=== PATIENT | female | born 1950 | race African-American/Black ===

== ENCOUNTER 2016-12-23 09:12 | Outpatient (CLI) | payer MEDICARE ==
--- NOTE | 2016-12-23 10:34 | MMO ---
LEFT DIAGNOSTIC MAMMOGRAM: HISTORY: Abnormal calcifications on screening mammogram of 12/10/16. FINDINGS: Correlation is made with the mammograms of 12/10/16. The cluster of microcalcifications in the central aspect of the right breast have a suspicious appea beatriz and should be evaluated with biopsy (stereotactic). IMPRESSION: BI-RADS category 4 - suspicious abnormality. Biopsy is recommended. Report was called over the telephone to Dr. Maura Connors's nurse, Bari Gómez, at 9:50a.m. (Dr. Enrico aguayo is out of town). CODE T POS: [facility]
== END 2016-12-23 09:13 | disposition home or self-care (01) ==
LOC: MAMMO 09:12
PROVIDERS: ATTEND Internal Medicine Medical Oncology
DX: R92.2 Inconclusive mammogram (principal)
CPT/HCPCS: G0206-LT

== ENCOUNTER → 2017-01-07 | Day surgery (SDC) | payer MEDICARE ==
--- NOTE | 2017-01-07 11:34 | MMO ---
STEREOTACTIC LEFT BREAST BIOPSY: Date: 01/07/17 CLINICAL HISTORY: Left breast calcifications. PROCEDURE: Informed consent was obtained. The patient was escorted to the procedural suite. The patient's left breast was placed into compression on the stereotactic table. Topical anesthesia was achieved with b uffered 1% lidocaine subsequent to standard sterile prepping and draping. Using mammographic imaging , the calcifications of interest were localized. Stereotactic coordinates were performed. A small sk in incision was made, through which a 10 gauge stereotactic biopsy needle was advanced to the leadin g edge of the calcifications and then deployed at the appropriate site, confirmed with imaging. Subs equently, six core specimens were acquired. The specimens were radiographed, which revealed calcific ations of interest. The biopsy needle was then removed and was exchanged for a marking clip placemen t device. Biopsy marking clip was then deployed. This was confirmed with stereotactic imaging. All d evices were otherwise removed from the patient. The patient tolerated the procedure well. Hemostasis was achieved. IMPRESSION: Technically successful stereotactic left breast biopsy. Pathology results are pending. POS: [facility]
--- NOTE | 2017-01-07 11:34 | MMO ---
SPECIMEN RADIOGRAPH: Date: 01/07/17 CLINICAL HISTORY: Stereotactic biopsy of the left breast. FINDINGS: Specimens from stereotactic biopsy are radiographed and reveal calcifications of interest. IMPRESSION: Calcifications are present within the biopsied, radiographed specimens. POS: [facility]
--- NOTE | 2017-01-07 11:36 | MMO ---
DIAGNOSTIC LEFT MAMMOGRAM: Date: 01/07/17 CLINICAL INDICATION: Postprocedural diagnostic left mammographic views subsequent to stereotactic biopsy and marking clip placement. FINDINGS: There are scattered fibroglandular elements. The patient's clustering of indeterminate calcification s has a reduced number of calcifications status post biopsy with a deployed marking clip within this region. IMPRESSION: Reduced number of calcifications of interest status post stereotactic biopsy with marking clip deplo yed at the site of calcifications. POS: [facility]
== END ==
LOC: MAMMO 06:52
PROVIDERS: ATTEND Internal Medicine Medical Oncology
PROC: 0HBU3ZX Excision of Left Breast, Percutaneous Approach, Diagnostic (ICD-10-PCS; principal; 2017-01-07)
DX: N60.22 Fibroadenosis of left breast (principal)
CPT/HCPCS: 19081; 76098; 88305; G0206

== ENCOUNTER 2018-01-27 13:19 | Outpatient (CLI) | payer MEDICARE | END 2018-01-27 13:20 | disposition home or self-care (01) | LOC: BICMAMMO 13:19 | PROVIDERS: ATTEND Internal Medicine Medical Oncology | DX: Z12.31 Encounter for screening mammogram for malignant neoplasm of breast (principal); Z85.3 Personal history of malignant neoplasm of breast; Z80.3 Family history of malignant neoplasm of breast; Z87.42 Personal history of other diseases of the female genital tract | CPT/HCPCS: 77066; G0279; 77063; 77067 ==

== ENCOUNTER 2019-02-01 13:34 | Outpatient (CLI) | payer MEDICARE ==
--- NOTE | 2019-02-01 15:51 | MMO ---
Bilateral MAMMO Bilat Screen [facility]. CLINICAL HISTORY: Patient is 68 years old and is seen for screening. The patient has the following family history of breast cancer: mother and sister, at age 26. The patient has a history of malignant (generic) in the right breast 2006. The patient has a history of left Stereotatic Biopsy in January, - benign, left needle biopsy in 2006 - malignant, right Lumpectomy in 2006 - malignant and right Excisional Biopsy in - benign. VIEWS: The views performed were: bilateral craniocaudal with tomosynthesis and bilateral mediolateral oblique with tomosynthesis. FILMS COMPARED: The present examination has been compared to prior imaging studies performed at [facility] on 09/25/2015, 12/10/2016, 12/23/2016 and 01/27/2018. This study has been interpreted with the assistance of computer-aided detection. MAMMOGRAM FINDINGS: There are scattered fibroglandular densities. Finding 1: There are stable benign appearing calcifications seen in both breasts. There are no suspicious masses, calcifications or areas of architectural distortion. Finding 2: There are biopsy clips seen in the left breast. Finding 3: There are stable post operative changes seen in the right breast. There are no suspicious masses, suspicious calcifications, or new areas of architectural distortion. IMPRESSION: THERE IS NO MAMMOGRAPHIC EVIDENCE OF MALIGNANCY. A ROUTINE FOLLOW-UP MAMMOGRAM IN 1 YEAR IS RECOMMENDED. THE RESULTS OF THIS EXAM WERE SENT TO THE PATIENT. ACR BI-RADS Category 2 - Benign finding MAMMOGRAPHY NOTE: 1. A negative mammogram report should not delay a biopsy if a dominant of clinically suspicious mass is present. 2. Approximately 10% to 15% of breast cancers are not detected by mammography. 3. Adenosis and dense breasts may obscure an underlying neoplasm. Reported by: CAROLYN COTA MD Electonically Signed: [id number]
== END 2019-02-01 13:35 | disposition home or self-care (01) ==
LOC: BICMAMMO 13:34
PROVIDERS: ATTEND Internal Medicine
DX: Z12.31 Encounter for screening mammogram for malignant neoplasm of breast (principal); Z80.3 Family history of malignant neoplasm of breast; Z85.3 Personal history of malignant neoplasm of breast; Z91.89 Other specified personal risk factors, not elsewhere classified; Z98.890 Other specified postprocedural states
CPT/HCPCS: 77063; 77067

== ENCOUNTER 2020-01-31 07:45 | Outpatient (CLI) | payer MEDICARE ==
--- NOTE | 2020-01-31 08:55 | CT ---
EXAM: CT Abdomen Pelvis W Con PROVIDED CLINICAL HISTORY: Colon cancer found at recent colonoscopy COMPARISON: None FINDINGS: The visualized lung bases are free of significant opacity. There is a 2 cm predominantly fat density mass at the superior pole of the left kidney. There are sub centimeter hypodensities involving both kidneys as well as the right hepatic lobe, too small to definitively characterize but statistically reflecting cysts. The spleen, pancreas and adrenal glands appear unremarkable. The gallbladder is moderately distended by gallstones. There is conspicuous mural thickening involving the sigmoid colon-descending colon junction, presumab ly reflecting the provided clinical history of colon cancer. There is no bowel dilatation, inflammatory fat stranding, free fluid or lymph node enlargement apparent. The regional major vascular structures appear unremarkable with the exception of vascular calcificati on. The osseous structures demonstrate no concerning lytic or blastic lesions. Bilateral hip degenerative changes with associated subcortical cyst formation within both acetabula. Degenerative changes are seen involving the spine. IMPRESSION: 1. No CT evidence for metastatic disease. 2. 2 cm left renal angiomyolipoma. 3. Prominent cholelithiasis.
== END 2020-01-31 07:46 | disposition home or self-care (01) ==
LOC: SCSCT 07:45
PROVIDERS: ATTEND Specialist
DX: C18.9 Malignant neoplasm of colon, unspecified (principal); D17.71 Benign lipomatous neoplasm of kidney; K80.20 Calculus of gallbladder without cholecystitis without obstruction
CPT/HCPCS: 74177

== ENCOUNTER 2020-02-09 06:51 | Outpatient (CLI) | payer MEDICARE, OTHER ==
--- NOTE | 2020-02-09 14:48 | RAD ---
2 VIEW CHEST: Date: 02/09/2020 HISTORY: Preop. FINDINGS: Lung dickey are clear. No infiltrate or vascular congestion. Heart size upper normal. Osseous structu res unremarkable. IMPRESSION: No acute process. POS: [facility]
[2020-02-10 15:19] LABS: SARS-CoV-2 MS2 Positive; SARS-CoV-2 N Gene Negative; SARS-CoV-2 S Gene Negative; SARS-CoV-2 by NAA Not Detected (NotDetected); SARS-CoV-2 orf1ab Negative
--- NOTE | 2020-02-12 20:54 | EKG ---
Test Reason : Blood Pressure : / mmHG Vent. Rate : 072 BPM Atrial Rate : 072 BPM P-R Int : 154 ms QRS Dur : 090 ms QT Int : 390 ms P-R-T Axes : 066 -06 057 degrees QTc Int : 427 ms Normal sinus rhythm Possible Left atrial enlargement Nonspecific T wave abnormality Abnormal ECG No previous ECGs available Confirmed by William GILLILAND ([id number]) on 02/12/2020 8:53:37 PM Referred By: JULIANO Confirmed By:William GILLILAND
== END 2020-02-09 06:52 | disposition home or self-care (01) ==
LOC: LABBT 06:51
PROVIDERS: ATTEND Specialist
DX: Z01.818 Encounter for other preprocedural examination (principal); Z20.828 Contact with and (suspected) exposure to other viral communicable diseases
CPT/HCPCS: 71046; 93005; U0003; 87635; 93010

== ENCOUNTER 2020-02-09 14:00 | Inpatient (IN) | payer MEDICARE ==
[2020-02-13 12:44] VITALS: BMI 28.2
[2020-02-14] MEDS ORDERED: Lidocaine 1% w/Epinephrine 1:100K 20 ML VIAL ONE ×2 (08:51→11:10)
[2020-02-14] MEDS ORDERED: Bupivacaine 0.25% HCL 30 ML VIAL ONE (08:51)
[2020-02-14] MEDS ORDERED: Fentanyl 250 MCG/5 ML VIAL ONE (08:56)
[2020-02-14] MEDS ORDERED: cefOXitin Sodium/Dextrose 2 GM/50 ML BAG ONE ×2 (08:58→12:13)
[2020-02-14] MEDS ORDERED: Ketorolac Tromethamine 30 MG/ML VIAL ONE (08:58)
[2020-02-14] MEDS ORDERED: Acetaminophen 500 MG TAB ONE (08:58)
[2020-02-14] MEDS ORDERED: Fentanyl 100 MCG/2 ML VIAL ONE ×2 (09:29→16:16)
[2020-02-14] MEDS ORDERED: Midazolam HCl 2 mg/2 ml Vial ONE (09:29)
[2020-02-14] MEDS ORDERED: ePHEDrine 50 MG/ML VIAL ONE (10:22)
[2020-02-14] MEDS ORDERED: Bupivacaine HCl 0.5%/Epinephrine 1:200,000/PF 30 ml Vial ONE (10:22)
[2020-02-14] MEDS ORDERED: Lidocaine 1% PF 5 ML VIAL ONE (10:22)
[2020-02-14] MEDS ORDERED: Rocuronium Bromide 10 MG/ML (10ML VIAL) ONE (10:22)
[2020-02-14] MEDS ORDERED: Dexamethasone 20 MG/5 ML VIAL ONE (10:22)
[2020-02-14] MEDS ORDERED: Glycopyrrolate 0.2 MG/ML 5 ML SYRINGE ONE (10:22)
[2020-02-14] MEDS ORDERED: Ondansetron PF 4 MG/2 ML Vial ONE (10:22)
[2020-02-14] MEDS ORDERED: PHENYLEPHRINE-NS 100 MCG/ML 10 ML SYRINGE ONE (10:22)
[2020-02-14] MEDS ORDERED: PROPOFOL 200 MG/20 ML VIAL ONE (10:22)
[2020-02-14] MEDS ORDERED: D5 1/2 NS w/20 mEq KCL 1,000 ML ONE (13:41)
[2020-02-14] MEDS ORDERED: Promethazine HCl 25 MG/ML VIAL SLOW IVP PRN (14:02)
[2020-02-14] MEDS ORDERED: Ondansetron HCl/PF 4 MG/2 ML Vial IVP PRN (14:02)
[2020-02-14] MEDS ORDERED: Promethazine HCl 25 MG/ML VIAL IM PRN ×2 (14:02→17:27)
[2020-02-14] MEDS ORDERED: Morphine 2 MG/ML VIAL SLOW IVP PRN (17:27)
[2020-02-14] MEDS ORDERED: Morphine 4 MG/ML VIAL SLOW IVP PRN (17:27)
[2020-02-14] MEDS ORDERED: Ondansetron PF 4 MG/2 ML Vial IVP PRN (17:27)
[2020-02-14] MEDS ORDERED: hydrALAZINE 20 MG/ML VIAL SLOW IVP PRN (17:27)
[2020-02-14] MEDS: Ketorolac Tromethamine 30 MG/ML VIAL IVP SCH ×2 (18:23→23:41)
[2020-02-14] MEDS: D5 1/2 NS w/20 mEq KCL 1,000 ML IV SCH (18:30)
[2020-02-14] MEDS: Atorvastatin Calcium 10 MG TAB PO SCH (20:59)
[2020-02-14] MEDS: Famotidine/PF 20 mg/2ml Vial SLOW IVP SCH (20:59)
[2020-02-14] MEDS: Enoxaparin Sodium 40 MG/0.4 ML SYRINGE SC SCH (20:59)
[2020-02-14] MEDS: Famotidine 20 MG TAB PO SCH (22:41)
[2020-02-15] MEDS: D5 1/2 NS w/20 mEq KCL 1,000 ML IV SCH ×3 (01:37→10:07)
[2020-02-15] MEDS: Ketorolac Tromethamine 30 MG/ML VIAL IVP SCH ×4 (05:25→23:35)
[2020-02-15 06:05] LABS: #Lymphocytes 0.7 thou/uL (1.20-3.40); #Monocytes 0.9 thou/uL (0.11-0.59); #Neutrophils 11.6 thou/uL (1.40-6.50); %Basophils 0.1 % (0.0-1.0); %Lymphocytes 5.3 % (21.0-51.0); %Monocytes 6.6 % (0.0-10.0); Hemoglobin 7.9 g/dL (12.0-16.0); Mean Corpuscular HGB CONC 30.8 g/dL (32.0-36.0); Mean Corpuscular Hemoglobin 23.5 pg (27.0-31.0); Mean Corpuscular Volume 76.5 fL (78.0-98.0); Mean Platelet Volume 8.4 fL (7.4-10.4); Platelet Count 289 thou/uL (130-400); RBC Distribution Width 15.9 % (11.5-14.5); Red Blood Cell (RBC) Count 3.36 mill/uL (4.20-5.40); White Blood Cell (WBC) Count 13.2 thou/uL (4.8-10.8)
[2020-02-15 06:25] LABS: Anion Gap 11 mmol/L (10-20); BUN (Urea Nitrogen) 5 mg/dL (9.8-20.1); Calc. Creatinine Clearance 94 mL/min (70-130); Calcium 8.7 mg/dL (7.8-10.44); Carbon Dioxide 24 mmol/L (23-31); Chloride 110 mmol/L (98-107); Estimated GFR-MDRD Greater than 90; Glucose 125 mg/dL (80-115); Potassium 3.6 mmol/L (3.5-5.1); Sodium 141 mmol/L (136-145)
--- NOTE | 2020-02-15 06:27 | PDOC.GSPN ---
Surgery Progress Note: Subj - Subjective Narrative: Ms. Gonzalez is a 69 y.o F POD 1 laparoscopic sigmoid colectomy and ch olecystectomy. Overnight she did well and had no complaints this morning. She was laying in bed at the time of the visit and rated her pain as a 0/10. She was able to tolerate her clear liquid diet yesterday and denied any nausea or vomiting. She has not yet had a bowel movement but has passed flatus this morning. She has voided once since the removal of her bailon this morning. She has been ambulating frequently. She denies any chest pain, dizziness, shortness of breath, and palpitations. She did not have an incentive spirometer made available to her. Surgery Progress Note: Obj - Vital signs Vital signs: Vital Signs - Most Recent Temp Pulse Resp BP Pulse Ox 99 F 77 18 160/80 H 97 02/15/20 03:18 02/15/20 03:18 02/15/20 03:18 02/15/20 03:18 02/15/20 03:18 - Physical Exam General: no distress Cardiovascular: regular rate and rhythm Respiratory: clear to auscultation, normal respiratory effort, breath sounds present Abdomen: soft, nondistended, positive bowel sounds, appropriately tender Wound: healing well Surgery Progress Note: Results - Labs Result Diagrams: 02/15/20 05:39 02/15/20 05:39 Lab results: Laboratory Results - last 12 hr 02/15/20 02/15/20 05:39 05:39 WBC 13.2 H RBC 3.36 L Hgb 7.9 L Hct 25.7 L MCV 76.5 L MCH 23.5 L MCHC 30.8 L RDW 15.9 H Plt Count 289 MPV 8.4 Neutrophils % 88.0 H Lymphocytes % 5.3 L Monocytes % 6.6 Eosinophils % 0.0 Basophils % 0.1 Neutrophils # 11.6 H Lymphocytes # 0.7 L Monocytes # 0.9 H Eosinophils # 0.0 Basophils # 0.0 Sodium 141 Potassium 3.6 Chloride 110 H Carbon Dioxide 24 Anion Gap 11 BUN 5 L Creatinine 0.70 Estimated GFR (MDRD) Greater than 90 Glucose 125 H Calcium 8.7 Her Hgb had been trending downward prior to surgery 2/2 colon cancer. It was 9.3 on 01/29 and is 7.9 this morning. We will continue to monitor her Hgb trend post-op. Surgery Progress Note: A/P - Plan Plan: Ms. Gonzalez is a 69 year old F POD 1 laparoscopic sigmoid colectomy and cholecystectomy. Overall she's doing well. 1. Advance her diet to full liquids 2. D/C IV fluids 3. CBC tomorrow AM to follow Hgb 4. DVT prophylaxis: encourage ambulation, continue lovenox, and SCDs 5. Give her an incentive spirometer and encourage use
[2020-02-15] MEDS: Amlodipine 10 MG TAB PO SCH (08:55)
[2020-02-15] MEDS: Famotidine 20 MG TAB PO SCH ×2 (08:55→21:27)
[2020-02-15] MEDS: Famotidine/PF 20 mg/2ml Vial SLOW IVP SCH (08:56)
[2020-02-15] MEDS ORDERED: HYDROcodone/Acetaminophen 7.5/325 mg Tablet PO PRN ×2 (10:52)
--- NOTE | 2020-02-15 17:15 | PDOC.FMACP ---
Advance Care Planning - Problem (1) S/P colectomy Status: Acute (2) Palliative care encounter Status: Acute Code(s): Z51.5 - ENCOUNTER FOR PALLIATIVE CARE (3) S/P cholecystectomy Status: Acute Code(s): Z90.49 - ACQUIRED ABSENCE OF OTHER SPECIFIED PARTS OF DIGESTIVE TRACT - Note Participants: patient, palliative care Summary: Palliative Care introduced Advanced Care Planning, opportunity to decline. The diagnosis, prognosis and goals of care were discussed. Appropriate forms and documentation to accomplish the goals of care were discussed. All questions were answered. Elected to complete a MPOA, original and copy given to the patient, copy also placed on chart for medical records. Directive to physician left for patient to review. Confirmed full resuscitation. Time Spent (mins): 15
[2020-02-15] MEDS: Atorvastatin Calcium 10 MG TAB PO SCH (21:28)
[2020-02-15] MEDS: Enoxaparin Sodium 40 MG/0.4 ML SYRINGE SC SCH (21:28)
[2020-02-16] MEDS: D5 1/2 NS w/20 mEq KCL 1,000 ML IV SCH (03:35)
[2020-02-16] MEDS: Ketorolac Tromethamine 30 MG/ML VIAL IVP SCH (05:51)
[2020-02-16 06:05] LABS: #Lymphocytes 1.4 thou/uL (1.20-3.40); #Monocytes 0.6 thou/uL (0.11-0.59); #Neutrophils 6.7 thou/uL (1.40-6.50); %Basophils 0.3 % (0.0-1.0); %Eosinophils 0.4 % (0.0-10.0); %Lymphocytes 15.6 % (21.0-51.0); %Monocytes 7.2 % (0.0-10.0); %Neutrophils 76.5 % (42.0-75.0); Hemoglobin 7.1 g/dL (12.0-16.0); Mean Corpuscular HGB CONC 31.2 g/dL (32.0-36.0); Mean Corpuscular Hemoglobin 24.1 pg (27.0-31.0); Mean Corpuscular Volume 77.5 fL (78.0-98.0); Mean Platelet Volume 8.3 fL (7.4-10.4); Platelet Count 262 thou/uL (130-400); RBC Distribution Width 15.9 % (11.5-14.5); Red Blood Cell (RBC) Count 2.94 mill/uL (4.20-5.40); White Blood Cell (WBC) Count 8.7 thou/uL (4.8-10.8)
--- NOTE | 2020-02-16 06:18 | PDOC.GSPN ---
Surgery Progress Note: Subj - Subjective Narrative: Patient is a 69 y.o. female POD 2 s/p laparoscopic sigmoid colectomy and cholecystectomy. She reports feeling "good" this morning with no overnight events. Her pain is 0/10. She had been advanced to full liquid diet yesterday and tolerated it well, denies nausea or dyspepsia. BM x 3 yesterday, began as watery and loose but became more formed. Also, + flatus and + belching. She ambulated with the walking program 3-4x yesterday and 1x this morning after I spoke with her. She denies fever, SOB, n/v and chest pain. Surgery Progress Note: Obj - Vital signs Vital signs: Vital Signs - Most Recent Temp Pulse Resp BP Pulse Ox 98.5 F 77 16 135/72 94 L 02/16/20 04:25 02/16/20 04:25 02/16/20 04:25 02/16/20 04:25 02/16/20 04:25 - Physical Exam General: no distress, no pain Cardiovascular: regular rate and rhythm, no murmur Respiratory: clear to auscultation, normal respiratory effort Abdomen: soft, nondistended, positive bowel sounds (in all 4 quadrants), appr opriately tender (to palpation in RLQ and LLLQ) Wound: healing well. negative: drainage Surgery Progress Note: Results - Labs Result Diagrams: 02/16/20 05:35 02/15/20 05:39 Lab results: Laboratory Results - last 12 hr 02/16/20 05:35 WBC 8.7 RBC 2.94 L Hgb 7.1 L Hct 22.7 L MCV 77.5 L MCH 24.1 L MCHC 31.2 L RDW 15.9 H Plt Count 262 MPV 8.3 Neutrophils % 76.5 H Neutrophils % (Manual) Not Reportable Lymphocytes % 15.6 L Monocytes % 7.2 Eosinophils % 0.4 Basophils % 0.3 Neutrophils # 6.7 H Lymphocytes # 1.4 Monocytes # 0.6 H Eosinophils # 0.0 Basophils # 0.0 Hgb continues to trend down from 7.9 yesterday to 7.1 today. WBC within normal range, trending down from 13.2 yesterday. Surgery Progress Note: A/P - Plan Plan: Patient is a 69 y.o. female POD 2 s/p lap sigmoid colectomy and cholecystectomy. Overall, recovering well but with concerns for anemia. 1. Anemia: Hgb @ 7.1 this morning, trending down from 7.9 yesterday. No signs of tissue hypoxia noted on exam. Threshold for transfusion is < 7.0. We should consider this management strategy at this time since anemia can significantly affect postop recovery. Consider ordering iron study. 2. Advance to regular diet 3. VTE prophylaxis: Lovenox, continue ambulation, SCDs 4. Continue IVF
[2020-02-16] MEDS: Amlodipine 10 MG TAB PO SCH (09:09)
[2020-02-16] MEDS: Ferrous Sulfate 325 MG TAB PO SCH ×2 (09:09→17:21)
[2020-02-16] MEDS: Famotidine 20 MG TAB PO SCH ×2 (09:10→21:17)
--- NOTE | 2020-02-16 13:57 | OP ---
DATE OF PROCEDURE: 02/14/2020 PREOPERATIVE DIAGNOSES: Sigmoid colon cancer, cholelithiasis. POSTOPERATIVE DIAGNOSES: Sigmoid colon cancer, cholelithiasis with appendiceal adhesions to the colon cancer. OPERATIONS PERFORMED: Laparoscopic sigmoid colectomy, laparoscopic cholecystectomy, laparoscopic appendectomy. ANESTHESIA: General endotracheal. INDICATIONS: The patient is a 69-year-old black female. She had a recent colonoscopy demonstrating a colon cancer at about 35 cm from the anal verge. Although, she has a markedly elevated CEA level of 23, CT scan showed no definite evidence of metastatic disease. She was taken to the operating room at this time for colon resection. Her CT scan also showed extensive cholelithiasis for which I have recommended cholecystectomy simultaneously. DESCRIPTION OF OPERATION: Informed consent was obtained. The patient was taken to the operating room, where general endotracheal anesthesia was obtained with the patient in supine position. Abdomen was prepped with ChloraPrep. Wright catheter was placed. She was placed in the dorsal lithotomy position. Local anesthetic was infiltrated using 0.25% Marcaine with epinephrine. A 5 mm supraumbilical incision was created through which a Veress needle was passed in the peritoneal cavity and pneumoperitoneum was established using carbon dioxide up to pressure of 15 mmHg. A 5 mm trocar port was passed through the same incision. Laparoscopic camera was passed through this port. Under direct vision, a 12 mm right lower quadrant port was placed. The area of the obvious colon malignancy was easily visualized. It was adherent to the anterolateral abdominal wall on the left-hand side of the abdomen. The site was selected for the extraction port in the left lower quadrant. An 8 cm oblique incision was created and dissection was carried through skin and subcutaneous tissue. Muscle splitting was used to gain an entrance into the abdominal cavity. The Tnoy wound retractor was placed followed by the Erlinda. Attention was then turned to the malignancy. This was quite hard and estimated at least 8 to 9 cm in diameter. It was densely adherent to the lateral abdominal wall. I incised the peritoneum around the malignancy and elevated the peritoneum dissecting a plane free of malignancy behind this in order to mobilize it medially. This dissection was all carried out with the LigaSure. I then incised the white line of Toldt in an ascending fashion up to and including the splenic flexure. The splenic flexure was mobilized further by incising the attachments of the transverse colon. The splenic flexure was fully mobilized and the colonic mesentery was mobilized in a lateral to medial fashion by elevating the mesentery off Toldt's fascia. I turned my attention distally and at approximately the sacral promontory, began to dissect the colonic mesentery. I dissected a window through to the left side, identified the ureter, and mobilized the ureter posteriorly to keep it free from harm. I dissected a complete mesenteric window at approximately this level. The rectosigmoid colon was then divided with 2 fires of the Bagley stapler using a blue load. The mesentery was then divided in an ascending fashion towards the inferior mesenteric artery. There were noted to be firm nodes at the base of the SABI underlying the malignancy. The inferior mesenteric artery was skeletonized, but not divided laparoscopically. At this point, I identified a segment of descending colon that would easily reach down to the stapled end of the rectum and this was marked with the LigaSure. The colon was then externalized through the extraction port. I identified the inferior mesenteric artery that had been skeletonized and divided this between clamps and 2-0 silk ties. I then further divided the mesentery using the LigaSure up to the point that had been identified for proximal transection. Towels were placed around the extraction port and segregated instruments were utilized. An enterotomy was created in the colon at the level of transection. It was checked with the EEA sizers and found to tolerate all sizes of the dilator. I chose a 31 mm EEA stapler and obtained the anvil. This was passed through the enterotomy and several centimeters proximally, the spike was passed through the antimesenteric wall. The colon was then divided so as to exclude the enterotomy in continuity with the cancer. This final fire was also blue load of the Bagley stapler. The specimen was then passed off the field. Gloves were changed. The spike was cleansed with Betadine. A pursestring suture of 2-0 Prolene was placed around the base of the anvil. This was then dropped back down to the abdominal cavity and pneumoperitoneum was reestablished. From below, sizers were passed through the anus up to the rectal stump and the 31 mm EEA stapler was passed in a similar fashion. This was mated to the anvil. The 2 segments of the bowel were anastomosed by firing the stapler. The donuts were intact. Because there was an ample segment of distal colon beyond the cancer, I did not submit the rim for pathologic evaluation. The anastomosis was checked under water for air leak by insufflating air and there was no evidence of leak. Attention was then turned to the gallbladder. With the patient in reverse Trendelenburg, the gallbladder was identified. This had ample evidence of inflammatory change around this. There were marked adhesions to it. It was difficult to grasp because the gallbladder was almost entirely filled with gallstones internally. I was able to dissect the adhesions away using a combination of electrocautery and LigaSure. The apex of the gallbladder was dissected and I carefully identified the cystic duct and cystic artery and divided these with clips, leaving 2 on the side to remain within the abdomen. The gallbladder was then dissected out of the gallbladder fossa using electrocautery. The gallbladder was removed through the GelPort. The gallbladder fossa was inspected for hemostasis and the area was irrigated and found to be hemostatic. Not mentioned earlier was that during the course of the initial mobilization of the colon, it was noted that the appendix was adherent to the colon cancer. This was easily mobilized away. However, because of its adhesion, I decided to perform an appendectomy. The mesoappendix was taken down using the LigaSure and the appendix was divided using a PDS Endoloop. The appendix was passed off the field as an additional specimen. The laparoscopic instrumentation was all passed off the field. All ports and the GelPort were removed and the abdominal wall was cleansed with saline. Gowns and gloves were changed. The closing tray was utilized to close the wounds. The fascia was closed in 2 layers using a #1 PDS. The wound was copiously irrigated with 2 L of saline. The remainder of the wound was closed with 3-0 Vicryl and 4-0 Monocryl. The other port sites were closed with 4-0 Monocryl. Additional local anesthetic was instilled in the incisions as well. Dermabond was placed externally. There were no complications. The patient tolerated the procedure well and was taken to recovery room in stable condition. Job ID: [id number]
[2020-02-16] MEDS: Atorvastatin Calcium 10 MG TAB PO SCH (21:17)
[2020-02-17 05:34] LABS: #Lymphocytes 1.3 thou/uL (1.20-3.40); #Monocytes 0.7 thou/uL (0.11-0.59); #Neutrophils 6.7 thou/uL (1.40-6.50); %Basophils 0.1 % (0.0-1.0); %Eosinophils 0.5 % (0.0-10.0); %Monocytes 7.8 % (0.0-10.0); %Neutrophils 76.5 % (42.0-75.0); Hemoglobin 7.6 g/dL (12.0-16.0); Mean Corpuscular HGB CONC 31.9 g/dL (32.0-36.0); Mean Corpuscular Hemoglobin 23.7 pg (27.0-31.0); Mean Corpuscular Volume 74.2 fL (78.0-98.0); Mean Platelet Volume 8.6 fL (7.4-10.4); Platelet Count 292 thou/uL (130-400); RBC Distribution Width 15.9 % (11.5-14.5); White Blood Cell (WBC) Count 8.7 thou/uL (4.8-10.8)
--- NOTE | 2020-02-17 08:00 | PDOC.GSPN ---
Surgery Progress Note: Subj - Subjective Narrative: Patient is a 69 y.o. female POD 3 s/p laparoscopic sigmoid colectomy and cholecystecomy. She reports feel well this morning with no pain (0/10). She had more intestinal gas and associated intraabdominal pressure than usual last night after dinner, but is otherwise tolerating regular diet well. BM x 1 in 24 hours, more formed than day before. She is ambulating really well, 5-6x yesterday. She continues to have good urine output. IVF d/c yesterday so she was encouraged to increase po intake. She also endorses using the incentive spirometer on occasion. No fever, n/v, SOB, cp and dyspepsia. Surgery Progress Note: Obj - Vital signs Vital signs: Vital Signs - Most Recent Temp Pulse Resp BP Pulse Ox 98.8 F 69 16 152/72 H 95 02/17/20 02:57 02/17/20 02:57 02/17/20 02:57 02/17/20 02:57 02/17/20 02:57 - Physical Exam General: no distress, no pain Cardiovascular: regular rate and rhythm, no murmur Respiratory: clear to auscultation, normal respiratory effort Abdomen: soft, nondistended, positive bowel sounds, appropriately tender (in LLQ and inferior to umbilicus) Wound: healing well Surgery Progress Note: Results - Labs Result Diagrams: 02/17/20 05:06 02/15/20 05:39 Lab results: Laboratory Results - last 12 hr 02/17/20 05:06 WBC 8.7 RBC 3.20 L Hgb 7.6 L Hct 23.7 L MCV 74.2 L MCH 23.7 L MCHC 31.9 L RDW 15.9 H Plt Count 292 MPV 8.6 Neutrophils % 76.5 H Neutrophils % (Manual) Not Reportable Lymphocytes % 15.0 L Monocytes % 7.8 Eosinophils % 0.5 Basophils % 0.1 Neutrophils # 6.7 H Lymphocytes # 1.3 Monocytes # 0.7 H Eosinophils # 0.0 Basophils # 0.0 Hbg trended up, from 7.1 yday to 7.6 today. Surgery Progress Note: A/P - Plan Plan: Patient is a 69 y.o. female POD 3 s/p laparoscopic sigmoid colectomy and cholecystectomy. Overall, she is recovering well and possible d/c today. 1. Anemia: after interventions yesterday, including 1) d/c Lovenox, 2) iron supplement and 3) d/c Ketorolac, patient's Hgb increased from 7.1 yday to 7.6 today. Less cause for concern because of this improvement. Pt will be recommended to continue iron supplementation at home. 2. Continue to ambulate with walking program today 3. Encourage po intake 4. Probable discharge today: encourage ambulation and full-expansion breathing at home, f/u in clinic
[2020-02-17] MEDS: Famotidine 20 MG TAB PO SCH (09:32)
[2020-02-17] MEDS: Amlodipine 10 MG TAB PO SCH (09:34)
[2020-02-17] MEDS: Ferrous Sulfate 325 MG TAB PO SCH (09:37)
[2020-02-17 12:16] VITALS: BP 149/80; TEMP 98.6
--- NOTE | 2020-02-17 13:33 | PQF ---
CLINICAL DOCUMENTATION CLARIFICATION FORM: Dear Dr. White Date: 02/17/2020 Please exercise your independent, professional judgment in responding to the clarification form. Clinical indicators are provided on the bottom of this form for your review. Please check appropriate box(s): [ ] Acute blood loss anemia [ ] Post-op anemia related to acute blood loss [ ] Chronic Anemia: [ x] Anemia of Chronic Disease (please specify) __colon cancer___ [ ] Other [ ] Other diagnosis [ ] Unable to determine In addition, please specify: Present on Admission (POA): [ x ] Yes [ ] No [ ] Unable to determine For continuity of documentation, please document condition throughout progress notes and discharge summary. Thank You. CLINICAL INDICATORS - SIGNS / SYMPTOMS / LABS / RESULTS AND LOCATION IN EMR *PN 02/14 ([place]): CBC tomorrow AM to follow Hgb *PN 02/15 ([place]): * Anemia: Hgb @ 7.1 this morning, trending down from 7.9 yesterday. * No hypoxia noted on exam. * Consider ordering iron study. *PN 02/16 ([place]): Anemia: after intervention yesterday, including 1) d/c Lovenox, 2) iron supplement and 3) d/c Ketorolac, patients Hgb increased from 7.1 yday to 7.6 today. *LAB ([facility]): Hemoglobin 02/14 7.9 02/15 7.1 04/18 7.6 RISK FACTORS / RESULTS AND LOCATION IN EMR *Operative Notes 02/15 ([facility]): * Date of procedure 02/14/2020 * Sigmoid colon cancer * Laparoscopic sigmoid colectomy, laparoscopic cholecystectomy, laparoscopic appendectomy TREATMENTS / RESULTS AND LOCATION IN EMR *LAB ([facility]): CBC Daily 02/14-02/16 *MAR ([facility]): Feosol PO BID 02/15 - 02/16 *PN 02/16 ([place]): Intervention yesterday, including 1) d/c Lovenox, 2) iron supplement and 3) d/c Ketorolac. .. Pt will be recommended to continue iron supplementation at home. Thank you, Guadalupe CDS/Human Resources Assistant Manager Signature: Guadalupe Umanzor RN, CDS Phone #: [phone] This is a permanent part of the Medical Record [facility]
== END 2020-02-17 13:05 | disposition home or self-care (01) | DRG 331 ==
LOC: SURG A 02-14 08:27 → SJJU 02-14 17:07
PROVIDERS: ADMIT Specialist; ATTEND Specialist
PROC: 0DBN4ZZ Excision of Sigmoid Colon, Percutaneous Endoscopic Approach (ICD-10-PCS; principal; 2020-02-14)
PROC: 0FT44ZZ Resection of Gallbladder, Percutaneous Endoscopic Approach (ICD-10-PCS; 2020-02-14)
PROC: 0DTJ4ZZ Resection of Appendix, Percutaneous Endoscopic Approach (ICD-10-PCS; 2020-02-14)
DX: C18.7 Malignant neoplasm of sigmoid colon (principal); K80.20 Calculus of gallbladder without cholecystitis without obstruction; Z20.828 Contact with and (suspected) exposure to other viral communicable diseases; I10 Essential (primary) hypertension; E78.5 Hyperlipidemia, unspecified; E66.9 Obesity, unspecified; D63.0 Anemia in neoplastic disease; Z51.5 Encounter for palliative care; Z79.899 Other long term (current) drug therapy; Z68.29 Body mass index [BMI] 29.0-29.9, adult; Z90.710 Acquired absence of both cervix and uterus
CPT/HCPCS: 36415; 36416; 80048; 85025; 88302; 88304; 88309; 88341; 88342; J0694; J1100; J1650; J1885; J2250; J2405; J2704; J3010; J3480; J3490; S0020; S0028

== ENCOUNTER 2020-03-08 15:38 | Outpatient (CLI) | payer MEDICARE ==
[2020-03-09 03:08] LABS: SARS-CoV-2 MS2 Positive; SARS-CoV-2 N Gene Negative; SARS-CoV-2 S Gene Negative; SARS-CoV-2 by NAA Not Detected (NotDetected); SARS-CoV-2 orf1ab Negative
== END 2020-03-08 15:39 | disposition home or self-care (01) ==
LOC: LABBT 15:38
PROVIDERS: ATTEND Specialist
DX: Z01.818 Encounter for other preprocedural examination (principal); Z20.828 Contact with and (suspected) exposure to other viral communicable diseases
CPT/HCPCS: 80053; 82248; 82378; 82728; 83615; 84100; 84550; 85025; U0003; 36415; 87635

== ENCOUNTER 2020-03-13 08:22 | Observation (INO) | payer MEDICARE ==
[2020-03-13] MEDS ORDERED: Ketorolac Tromethamine 30 MG/ML VIAL ONE (09:28)
[2020-03-13] MEDS ORDERED: Acetaminophen 500 MG TAB ONE (09:28)
[2020-03-13] MEDS ORDERED: Lidocaine 2% Jelly 5 ML TUBE ONE (10:49)
[2020-03-13] MEDS ORDERED: Propofol 500 MG/50 ML VIAL ONE ×2 (10:49→10:55)
[2020-03-13] MEDS ORDERED: Fentanyl 100 MCG/2 ML VIAL ONE (10:49)
[2020-03-13] MEDS ORDERED: Bupivacaine 0.25% HCL 30 ML VIAL ONE (10:59)
[2020-03-13] MEDS ORDERED: Lidocaine 1% (PF) 30 ML VIAL ONE (10:59)
[2020-03-13] MEDS ORDERED: Lidocaine 1% w/Epinephrine 1:100K 20 ML VIAL ONE (10:59)
[2020-03-13] MEDS ORDERED: Ondansetron ODT 4 MG TAB PO PRN (13:38)
[2020-03-13] MEDS ORDERED: Acetaminophen 325 MG TAB PO PRN (13:38)
[2020-03-13] MEDS ORDERED: Diltiazem 125 MG in Sodium Chloride 0.9% 100 ML IVPB SCH (13:45)
--- NOTE | 2020-03-13 13:56 | RAD ---
PORTABLE CHEST ONE VEIW: 03/13/20 at 12:22 p.m. HISTORY: Mediport placement. Colon cancer. Right breast cancer. COMPARISON: 02/09/20. FINDINGS: There has been interval placement of a right sided Port-A-Cath with tip in the projection of the SVC. No pneumothorax is seen. The heart size is borderline. No lobar consolidation, pneumothoraces, cassidy pulmonary edema or pleural effusions are seen. There is mild prominence of the pulmonary vascularity . POS: [facility]
[2020-03-13] MEDS ORDERED: Sodium Chloride 0.9% 10 ML ONE (14:52)
[2020-03-13 16:10] LABS: ALT (SGPT) 7 U/L (8-55); AST (SGOT) 12 U/L (5-34); Albumin 3.9 g/dL (3.4-4.8); Alkaline Phosphatase 113 U/L (40-110); Anion Gap 15 mmol/L (10-20); BUN (Urea Nitrogen) 10 mg/dL (9.8-20.1); Bilirubin, Total 0.5 mg/dL (0.2-1.2); Calc. Creatinine Clearance 91 mL/min (70-130); Calcium 9.2 mg/dL (7.8-10.44); Carbon Dioxide 26 mmol/L (23-31); Cardiac Risk 3.1 (Less than 4.5); Chloride 107 mmol/L (98-107); Cholesterol 238 mg/dl (< 200 Desired); Globulin 3.2 g/dL (2.4-3.5); Glucose 94 mg/dL (80-115); HDL Cholesterol 78 mg/dL (>60 Neg Risk); LDL Cholesterol, Calculated 140 mg/dL; Potassium 3.5 mmol/L (3.5-5.1); Protein, Total 7.1 g/dL (6.0-8.3); Sodium 144 mmol/L (136-145); Triglycerides 102 mg/dL (Less than 150)
[2020-03-13 16:23] LABS: #Eosinphils 0.1 thou/uL (0.0-0.7); #Lymphocytes 2.1 thou/uL (1.20-3.40); #Monocytes 0.4 thou/uL (0.11-0.59); #Neutrophils 2.7 thou/uL (1.40-6.50); %Basophils 0.8 % (0.0-1.0); %Eosinophils 2.4 % (0.0-10.0); %Monocytes 7.5 % (0.0-10.0); %Neutrophils 50.3 % (42.0-75.0); Anisocytosis SLIGHT = 6-15 cells (100X) (0-5/hpf); Hemoglobin 11.9 g/dL (12.0-16.0); MDiff Complete? YES; Mean Corpuscular HGB CONC 30.9 g/dL (32.0-36.0); Mean Corpuscular Hemoglobin 25.9 pg (27.0-31.0); Mean Corpuscular Volume 83.9 fL (78.0-98.0); Mean Platelet Volume 9.1 fL (7.4-10.4); Platelet Count 264 thou/uL (130-400); Platelet Morphology Comment Appears Adequate; Polychromasia SLIGHT = 2-3 cells (100X) (0-2/hpf); RBC Distribution Width 22.1 % (11.5-14.5); Schistocytes SLIGHT = 2-5 cells (100X) (0-1/hpf); Target Cells SLIGHT = 2-5 cells (100X) (0-1/hpf); Tear Drops SLIGHT = 2-5 cells (100X) (0-1/hpf); White Blood Cell (WBC) Count 5.4 thou/uL (4.8-10.8)
[2020-03-13 16:29] LABS: T4 7.4 ug/dL (4.87-11.72); Thyroid Stimulating Hormone 0.5082 uIU/mL (0.35-4.94)
[2020-03-13 17:30] VITALS: BMI 27.3
--- NOTE | 2020-03-13 17:37 | CON ---
DATE OF CONSULTATION: HISTORY OF PRESENT ILLNESS: Augustus Gonzalez is a 69-year-old black female, who underwent sigmoid colectomy, cholecystectomy, and appendectomy on February 14, 2020. 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 She also had 1 out of 19 lymph nodes positive. She underwent placement of a MediPort today. Around the time that the wire was inserted, she went into atrial fibrillation with fast ventricular response. She thinks 20 years ago she may have had palpitations and saw a head of sales and marketing, but certainly she has not had rhythm issues over the last several years. She denies any history of chest pain or shortness of breath. She denies any peripheral edema or PND. At the present time, she is not aware of her rapid heartbeat. PAST MEDICAL HISTORY: Hypertension and hypercholesterolemia. No history of diabetes. PAST SURGICAL HISTORY: Operations; sigmoid colectomy, cholecystectomy, and appendectomy two months ago. MEDICATIONS: 1. Amlodipine 10 mg daily. 2. Ferrous sulfate 325 b.i.d. 3. Hydrochlorothiazide 25 q.a.m. 4. Metoprolol succinate 25 daily. 5. Simvastatin 20 at bedtime (she has taken her medications today). ALLERGIES: NONE. SOCIAL HISTORY: She does not smoke or drink. FAMILY HISTORY: Mother had myocardial infarctions. REVIEW OF SYSTEMS: A 10-point review of systems otherwise unremarkable. PHYSICAL EXAMINATION: VITAL SIGNS: Blood pressure 113/90 and pulse of 120 and irregularly irregular. HEENT: PERRL. NECK: Supple. CHEST: Clear. CARDIAC: S1 and S2 normal without any S3, S4, or murmurs. Carotid upstroke is normal without bruits. ABDOMEN: Normal bowel sounds without tenderness. EXTREMITIES: Revealed no clubbing, cyanosis, or edema. NEUROLOGIC: Grossly intact. SKIN: Warm and dry. LABORATORY DATA: Preop EKG revealed normal sinus rhythm with nonspecific T-wave changes. After the procedure, EKG revealed atrial fibrillation with rapid ventricular response of 118 per minute with nonspecific ST and T-wave changes. Blood work five days ago revealed hemoglobin 11.0, hematocrit 36.3, white count 5900, and platelets 328,000. Sodium 143, potassium 3.4, chloride 105, carbon dioxide 27, BUN 10, and creatinine 0.77. Liver function tests were normal. LDL in December was 116. IMPRESSION: 1. New onset atrial fibrillation during the insertion of a MediPort catheter, possibly induced by the J-wire. 2. Hypertension. 3. Hypercholesterolemia. 4. History of colon cancer needing chemotherapy. PLAN: Electrolytes, magnesium, and TSH will be obtained. She will be started on a Cardizem drip and admitted for further evaluation. Echocardiogram will be performed. Further treatment will be dictated by the clinical course. Hopefully, she will return usually to normal rhythm. Job ID: [id number] MTDD
[2020-03-13] MEDS: Ferrous Sulfate 325 MG TAB PO SCH (18:36)
[2020-03-13] MEDS ORDERED: Atorvastatin Calcium 10 MG TAB PO SCH (21:00)
[2020-03-14] MEDS ORDERED: Apixaban 5 MG TAB PO SCH (09:00)
[2020-03-14] MEDS ORDERED: Diltiazem 125 MG in Sodium Chloride 0.9% 100 ML IVPB SCH (09:00)
[2020-03-14] MEDS ORDERED: Enoxaparin Sodium 30 MG/0.3 ML SYRINGE SC SCH (09:00)
[2020-03-14] MEDS ORDERED: Hydrochlorothiazide 25 MG TAB PO SCH (09:00)
[2020-03-14] MEDS ORDERED: Amlodipine 10 MG TAB PO SCH (09:00)
[2020-03-14] MEDS: Ferrous Sulfate 325 MG TAB PO SCH ×2 (09:11→17:48)
[2020-03-14] MEDS ORDERED: Dronedarone HCl 400 MG TAB PO SCH ×2 (10:45→17:00)
[2020-03-14 17:27] VITALS: BP 108/62; TEMP 96.2
[2020-03-14] MEDS ORDERED: Atorvastatin Calcium 40 MG TAB PO SCH (21:00)
--- NOTE | 2020-03-15 02:54 | OP ---
DATE OF PROCEDURE: 03/13/2020 PREOPERATIVE DIAGNOSIS: Node positive colon cancer. POSTOPERATIVE DIAGNOSIS: Node positive colon cancer. OPERATION PERFORMED: Placement of right subclavian low-profile power compatible MediPort. ANESTHESIA: Total intravenous anesthesia with local using a mixture of 1% lidocaine with epinephrine and 0.25% Marcaine. INDICATIONS FOR PROCEDURE: The patient is a 69-year-old black female. I had recently performed a sigmoid colectomy for what proved to be a T4 N1 colon cancer. MediPort placement has been requested for chemotherapy administration. DESCRIPTION OF OPERATION: Informed consent was obtained. The patient was taken to the operating room where total intravenous anesthesia was obtained with the patient in supine position. Right periclavicular area was prepped with ChloraPrep and draped in sterile fashion. Local anesthetic was infiltrated and a large-gauge needle was passed under the clavicle in the subclavian vein. Guidewire was passed through the needle and fluoroscopically confirmed to enter the superior vena cava. Additional local anesthetic was infiltrated and transverse incision was created based on needle insertion site. A subcutaneous pocket was dissected inferiorly. Introducer dilator was passed over the guidewire under fluoroscopic guidance. The guidewire and dilator were removed, and the catheter was passed through the introducer. The tip of the catheter was positioned at the atriocaval junction and the catheter was trimmed to the appropriate length and secured to the locking hub of the MediPort. The port was then placed in the subcutaneous pocket where it was secured to the pectoral fascia with 2 interrupted sutures of 3-0 Prolene. The incision was then closed in layers with 3-0 and 4-0 Monocryl. Additional local anesthetic was infiltrated. The port was cannulated with a Alejo needle and it aspirated blood freely and was flushed with heparinized saline. Dermabond was placed externally on the skin incision. There were no complications. Blood loss was negligible. The patient tolerated the procedure well and was taken to recovery room in stable condition. FINDINGS: The patient had a low-profile MediPort placed secondary to her body habitus. It was placed uneventfully into the right subclavian vein. Fluoroscopy was used throughout the procedure. There were no complications and blood loss was negligible. During the procedure, she developed an arrhythmia around the time that the guidewire was passed into the central venous system. As the procedure concluded, it was noted that she had become somewhat more tachycardic and had an irregular rhythm consistent with atrial fibrillation. For this reason, she was taken to the recovery room and an EKG was obtained in addition to her usual chest x-ray. The chest x-ray showed good position of the port and catheter. The EKG, however, did confirm atrial fibrillation. Cardiology would be consulted in the recovery room. Job ID: [id number]
--- NOTE | 2020-03-15 05:37 | DIS ---
DATE OF ADMISSION: 03/13/2020 DATE OF DISCHARGE: 03/14/2020 DISCHARGE DIAGNOSES: 1. Atrial fibrillation, possibly induced by J-wire during MediPort insertion. 2. History of palpitations after colectomy. 3. Hypertension. 4. Hypercholesterolemia, under poor control. 5. Colon cancer, for chemotherapy in the future. DISCHARGE DISPOSITION: A 30-day monitor will be placed on the patient. She will be anticoagulated for the next month. If no evidence of further atrial fibrillation is seen, it is anticipated that the Eliquis may be discontinued. She was placed on intravenous Cardizem and approximately 20 to 22 hours after onset of the atrial fibrillation, she converted to sinus rhythm. Also, she was hypokalemic at times and was started on potassium chloride. Low dose Metoprolol was added. Echocardiogram revealed normal left ventricular function with ejection fraction of 50% to 55%. Her cholesterol was 238, triglycerides 102, HDL 78, LDL 140. Simvastatin 20 was discontinued. Instead she was placed on atorvastatin 40 daily and this will be rechecked in 1 month. DISCHARGE MEDICATIONS: 1. Amlodipine 10 mg daily. 2. Eliquis 5 mg b.i.d. 3. Atorvastatin 40 daily. 4. Ferrous sulfate 325 b.i.d. 5. Hydrochlorothiazide 25 daily. 6. KCl 10 mEq daily. 7. Metoprolol 25 XL daily. Job ID: [id number] [facility]
[2020-03-15] MEDS ORDERED: Potassium Chloride 10 MEQ TAB PO SCH (08:00)
== END 2020-03-14 18:50 | disposition home or self-care (01) ==
LOC: SDC 08:22 → 2NO 13:00
PROVIDERS: ADMIT Specialist; ATTEND Specialist
PROC: 02HV33Z Insertion of Infusion Device into Superior Vena Cava, Percutaneous Approach (ICD-10-PCS; principal; 2020-03-13)
DX: C18.9 Malignant neoplasm of colon, unspecified (principal); I10 Essential (primary) hypertension; E78.00 Pure hypercholesterolemia, unspecified; I48.91 Unspecified atrial fibrillation; Z79.899 Other long term (current) drug therapy; Z85.3 Personal history of malignant neoplasm of breast
CPT/HCPCS: 36561; 71045; 80061; 82962; 83735; 84436; 93005; C1788; 36415; 36416; 80053; 84443; 85025; 93010; 96374; G0378; J0690; J1642; J1885; J2001; J2704; J3010; J3490; S0020

== ENCOUNTER 2020-06-29 12:23 | Outpatient (CLI) | payer MEDICARE | END 2020-06-29 12:24 | disposition home or self-care (01) | LOC: BICMAMMO 12:23 | PROVIDERS: ATTEND Internal Medicine Medical Oncology | DX: Z12.31 Encounter for screening mammogram for malignant neoplasm of breast (principal); Z80.3 Family history of malignant neoplasm of breast; Z91.89 Other specified personal risk factors, not elsewhere classified | CPT/HCPCS: 77063; 77067 ==

== ENCOUNTER 2020-10-05 07:49 | Outpatient (CLI) | payer MEDICARE | END 2020-10-05 07:50 | disposition home or self-care (01) | LOC: BICULT 07:49 | PROVIDERS: ATTEND Specialist | DX: M79.605 Pain in left leg (principal); C18.9 Malignant neoplasm of colon, unspecified; I82.402 Acute embolism and thrombosis of unspecified deep veins of left lower extremity ==

== ENCOUNTER 2023-03-11 12:23 | Outpatient (CLI) | payer MEDICARE | END 2023-03-11 12:24 | disposition home or self-care (01) | LOC: BICMAMMO 12:23 | PROVIDERS: ATTEND Internal Medicine | DX: Z12.31 Encounter for screening mammogram for malignant neoplasm of breast (principal) | CPT/HCPCS: 77063; 77067 ==